=== PATIENT | male | born 1990 | race Two or more races ===

== ENCOUNTER 2024-05-14 20:12 | Emergency (ER) | payer OTHER ==
[~2024-05-14] VITALS: Ht 162.6 cm; Wt 90.9 kg
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
[2024-05-15 02:06] LABS: Amphetamine Screen, Urine Neg (NEGATIVE); Barbiturate Scree,Urine Neg (NEGATIVE); Benzodiazephine Screen, Urine Neg (NEGATIVE); Cannabinoid Screen, Urine Neg (NEGATIVE); Cocaine Screen, Urine Neg (NEGATIVE); Opiate Scree,Urine Neg (NEGATIVE); Phencyclidine Screen, Urine Neg (NEGATIVE)
[2024-05-15 02:21] VITALS: BP 133/91; PULSE 80; RESP 18; TEMP 97.5; O2SAT 98
[2024-05-15] MEDS ORDERED: IBUP200C14 PO (02:25)
[2024-05-15] MEDS: HYDROcodone-ACET 10/325MG TAB PO ONE (02:38)
[2024-05-15] MEDS: IBUPROFEN 800 MG TAB PO ONE (02:39)
== END 2024-05-15 04:18 | disposition home or self-care (01) ==
LOC: EDBD 20:12 → ER 20:12
DX: S40.912A Unspecified superficial injury of left shoulder, initial encounter (principal); S80.912A Unspecified superficial injury of left knee, initial encounter; S50.911A Unspecified superficial injury of right forearm, initial encounter; J45.909 Unspecified asthma, uncomplicated; V69.9XXA Occupant (driver) (passenger) of heavy transport vehicle injured in unspecified traffic accident, initial encounter; Y93.89 Activity, other specified; Y92.89 Other specified places as the place of occurrence of the external cause; Y99.8 Other external cause status
CPT/HCPCS: 36415; 73030; 73070; 73560; 80307; 80320